=== PATIENT | female | born 1990 | race Caucasian/White ===

== ENCOUNTER → 2017-08-22 15:27 | Outpatient (CLI) | payer SELFPAY ==
--- NOTE | 2017-08-22 15:44 | MRI_ITS ---
STUDY: MRI BRAIN WITHOUT CONTRAST REASON FOR EXAM: Female, 27 years old. TAMAYO migraines with aura, numbness,slurred speech TECHNIQUE: Standardized multiplanar fat and water weighted pulse sequences were obtained. COMPARISON: None. FINDINGS: Normal size of the ventricles and extra-axial spaces for the patient's age. Normal white matter tracts of the supratentorial brain. Normal bilateral basal ganglia. Normal thalami. There is no extra-axial fluid accumulation. Normal flow voids within the major intracranial circulation suggesting patency by spin echo criteria. Normal sella turcica, pituitary gland, infundibular stalk, optic chiasm and hypothalamus. Normal tectal plate and pineal gland. Normal midbrain, lonnie and medulla. Normal cerebellum. Normal basal cisterns. Normal bilateral temporal bones. Normal bilateral internal auditory canals. No demonstrated orbital abnormality, within the constraints of a routine brain study. Normal visualized paranasal sinuses. Normal calvarium and skull base. Normal visualized soft tissue structures. Normal visualized upper cervical spine. MRI/Brain without Contrast IMPRESSION: Normal unenhanced MRI of the brain. Electronically Signed: Jeremy Plata MD at 3:22 EDT Tel , Service support ,
== END ==
PROVIDERS: Family Provider Family Medicine; PCP Family Medicine; Visit Provider Psychiatry & Neurology Neurology
DX: R51 Headache (principal)
CPT/HCPCS: 70551

== ENCOUNTER → 2017-10-07 17:46 | Outpatient (CLI) | payer SELFPAY ==
[2017-10-07 20:37] LABS: Chlamydia Trachomatis by PCR Negative (Negative); Neisserai gonorrhoeae by PCR Negative (Negative); Probe Check PASS; Sample Adequacy Control PASS; Specimen Processing Control PASS
== END ==
PROVIDERS: Family Provider Family Medicine; PCP Family Medicine; Visit Provider Obstetrics & Gynecology
DX: Z34.81 Encounter for supervision of other normal pregnancy, first trimester (principal)
CPT/HCPCS: 87086; 87491; 87591

== ENCOUNTER 2018-08-09 17:59 | Emergency (ER) | payer SELFPAY ==
[2018-08-09 18:00] VITALS: BP 145/98; PULSE 89; RESP 18; TEMP 36.3; O2SAT 96; BMI 25.0
--- NOTE | 2018-08-09 18:21 | CT_ITS ---
STUDY: CT ABDOMEN AND PELVIS WITHOUT CONTRAST REASON FOR EXAM: Female, 28 years old. Abdominal pain and cramping today RADIATION DOSAGE (If Supplied By Facility): CTDIvol = ( 6.47 ) mGy, DLP = ( 341.16 ) mGycm TECHNIQUE: Transaxial images were obtained from the dome of the diaphragm to the symphysis pubis without oral contrast, and without intravenous contrast. Sagittal and coronal images were reconstructed. Individualized dose optimization techniques were used for this CT. COMPARISON: None. FINDINGS: The visualized lung bases are unremarkable. The visualized portions of the heart are within normal limits. Normal liver. Normal gallbladder and extrahepatic biliary system. Normal spleen. Normal pancreas. Normal bilateral adrenal glands. Normal right kidney. Normal left kidney. Normal visualized stomach. Normal small intestine. Normal colon. The appendix is visualized and appears normal. Normal abdominal aorta. Normal inferior vena cava. Normal retroperitoneum. Normal urinary bladder. Normal abdominal wall. Normal osseous structures. CT/Abdomen/Pelvis without Cont IMPRESSION: No CT evidence of acute abdominopelvic pathology. No evidence of appendicitis, acute intestinal pathology, or acute obstructive uropathy. Electronically Signed: Stephen Arredondo MD at 20:40 EDT Tel , Service support ,
[2018-08-09] MEDS: 0.9% Normal Saline 1,000 ML 125 ML IV (18:26)
[2018-08-09 18:45] LABS: Bacteria 0 SEEN /hpf (None Seen); Mucous, Urine 0 SEEN /hpf (<or=2+); Red Blood Cells-Urine 0 SEEN /hpf (0-5)
[2018-08-09 19:04] LABS: Absolute Lymphocyte Count 2.59 X10^3/ul (0.83-4.51); Absolute Neutrophil Count 3.3 X10^3/uL (2.0-7.7); Basophil# 0.03 X10^3/uL; Basophil% 0.5 % (0-1); Hematocrit 41.5 % (37-47); Hemoglobin 14.1 g/dl (12.0-15.0); Lymphocyte # 2.59 X10^3/ul (4.0); Lymphocyte % 39.2 % (19-41); Mean Corpuscular Hgb 29.3 pg (27.0-32.0); Mean Corpuscular Volume 86.3 fL (81-99); Monocyte# 0.51 X10^3/uL; Monocyte% 7.7 % (0-10); Neutrophil # 3.26 X10^3/uL (2.7-7.7); Neutrophil % 49.4 % (47-70); Platelet Count 238 K/mm3 (150-450); RBC Distribution Width CV 14.4 % (11.6-14.6); Red Blood Count 4.81 M/mm3 (4.2-5.4); White Blood Count 6.6 K/mm3 (4.4-11.0)
[2018-08-09 19:07] LABS: POSITIVE COUNT NO; POSITIVE DIFFERENTIAL NO; POSITIVE MORPHOLOGY NO
[2018-08-09 19:11] LABS: Color, Urine Yellow (Yellow); Glucose, Dipstick Normal (Normal); Ketone-Dipstick 15 mg/dl (Negative); Leukocyte Esterase-Dipstick 25 /ul (Negative); Nitrite-Dipstick Negative (Negative); Occult Blood-Urine Negative /ul (Negative); Protein-Dipstick Negative (Negative); Specific Gravity, Urine 1.025 (1.002-1.030); Urine Bilirubin Dipstick Negative (Negative); Urine Clarity Sl. Cloudy (Clear); Urine Urobilinogen Normal (Normal)
[2018-08-09 19:21] LABS: ALB/GLOB Ratio 1.2 RATIO (0.9-2.4); AST(SGOT) 18 U/L (15-37); Alanine Aminotransfer ALT/SGPT 24 U/L (13-56); Albumin, Serum 4.3 g/dL (3.2-5.0); Alkaline Phosphatase 170 U/L (45-117); Anion Gap 9 (5-15); BUN 24 mg/dL (7-18); Calcium,Total 9.2 mg/dL (8.5-10.1); Chloride 106 mmol/L (98-107); Creatinine, Serum 1.26 mg/dL (0.55-1.02); EST Glomerular Filtration Rate 53 mL/min (>60); Est Glom Filt Rate - Afr Amer 64 mL/min (>60); Estimated Creatinine Clearance 61.12 ml/min; Globulin 3.5 g/dL (2.2-4.2); Glucose 80 mg/dL (74-106); Potassium 4.2 mmol/L (3.5-5.1); Protein, Total 7.8 g/dL (6.4-8.2); Sodium Level 141 mmol/L (136-145)
[2018-08-09 19:34] LABS: Hyaline Cast 0-5 SEEN /lpf (0-5); Squamous Epithelial Cells - UA 0-5 SEEN /hpf (5-10); White Blood Cells 0-5 SEEN /hpf (0-5)
[2018-08-09] MEDS: Ondansetron 4 MG/2 ML Vial IV (19:39)
[2018-08-09] MEDS: Morphine 4 MG/ML Syringe IV (19:39)
[2018-08-09 19:59] LABS: Pregnancy, Serum, hCG Quali. NEGATIVE Negative (0-9 Nonpreg)
--- NOTE | 2018-08-09 20:56 | US_ITS ---
STUDY: ULTRASOUND OF THE FEMALE PELVIS - COMPLETE REASON FOR EXAM: Female, 28 years old. Pelvic pain LMP: 07/04/2018 TECHNIQUE: Transvaginal TECHNICAL QUALITY: Adequate. COMPARISON: CT 08/09/2018 FINDINGS: The uterus is anteverted and is in a midline position. The uterus measures 6.3 x 4.4 x 2.9 cm. Normal uterine cervix. The endometrium measures 4 mm in thickness, and is hyperechoic. There is no demonstrated endometrial mass. There is no demonstrated myometrial mass. I.U.D. - The patient does not have an I.U.D. The right ovary is visualized. The right ovary measures 3.0 x 2.2 x 1.7 cm. There is no right ovarian cyst or ovarian mass. There is no visualized right adnexal mass or complex lesion. There is normal arterial and normal venous vascularity. The left ovary is visualized. The left ovary measures 2.1 x 1.9 x 1.9 cm. 1.3 x 1.1 x 1.0 cm cyst. There is no visualized left adnexal mass or complex lesion. There is normal arterial and normal venous vascularity. There is minimal fluid in the cul-de-sac. Polycystic ovary disease: No. US/Transvaginal Non- IMPRESSION: 1.3 cm left ovary cyst. Mild free pelvic fluid. Electronically Signed: Stephen Arredondo MD at 22:40 EDT Tel , Service support ,
[2018-08-09 21:09] VITALS: BP 114/79; PULSE 70; RESP 16; O2SAT 100
--- NOTE | 2018-08-09 21:14 | ED.VISSUMM ---
- ER Visit Summary Date of Service: 08/09/18 Chief Complaint: Abdominal pain [] History of Present Illness: The patient is a 28 F [presents the emergency department chief complaint of abdominal pain that started around 2 days ago initially. Patient had some mild intermittent discomfort to her left lower quadrant but the pain became more unbearable and severe about an hour prior to coming in and more in the suprapubic region. Patient denies any urinary symptoms. She denies any fever. She denies any vomiting. She has had some mild nausea. Patient denies any diarrhea. Patient did give about 11 weeks ago vaginally. Patient had some bleeding complications during .] Physical Examination: [HEENT-PERRLA, EOMI. Cranial nerves II through XII grossly intact. TMs clear. Mucous membranes moist. No adenopathy. Cardiovascular-regular rate and rhythm without murmur or ectopy Lungs-clear to auscultation, chest wall stable without crepitus or subcu emphysema Abdomen-normoactive bowel sounds, soft. Patient has some tenderness over suprapubic region with some guarding. She also has tenderness over right lower quadrant as well as the left lower quadrant. There is no rebound, rigidity, or perineal signs. Extremities-intact ?4, normal range of motion, normal pulses, atraumatic] Test Results: [CBC with differential obtained showed a white blood cell count of 6.6, hemoglobin 14, hematocrit 41.5, platelets 238. Chemistry showed a sodium 141, potassium 4.2, chloride 106, CO2 26, BUN 24, creatinine 1.26. Urinalysis was normal. HCG was negative. CT flank showed nothing acute. Pelvic ultrasound showed a 1.3 cm cyst on the left ovary otherwise nothing acute.] Emergency Department Course and Treatment: [She was medicated with morphine 4 mill grams IV as well as Zofran 4 mg IV. Patient continued complaint of pain. Pelvic ultrasound was obtained to rule out ovarian torsion.] Treatment Plan: [Patient will be given a prescription for [place]. Patient advised to follow-up with her COUNTY COMMISSIONER within the next 3-5 days. Patient advised to return if worsening pain, fever, vomiting, or condition should worsen anyway.] Disposition: [Discharged home in stable condition] Impression: [Abdominal pain-etiology uncertain Left ovarian cyst] This note was generated with [employer] software. It may contain incorrect words, spelling, and punctuation that were not noted in review of the chart prior to signing ED Disposition - Plan for ED Patient: Referrals: Shankar Ramos MD [Primary Care Provider] -
--- NOTE | 2018-08-09 22:52 | ED.DEP ---
ED Disposition - Plan for ED Patient: Instructions: ED Abdominal Pain Unkn Cause, ED Cyst Ovarian Referrals: Shankar Ramos MD [Primary Care Provider] -
[2018-08-09 23:01] VITALS: BP 110/76; PULSE 69; RESP 18; O2SAT 97
[2018-08-09] MEDS: HYDROcodone Bitartrate/Apap 5/325 Tablet PO (23:09)
== END 2018-08-09 23:10 | disposition home or self-care (01) ==
LOC: ED 18:35
PROVIDERS: Emergency Provider Emergency Medicine; Family Provider Family Medicine; PCP Family Medicine
DX: R10.31 Right lower quadrant pain (principal); R10.32 Left lower quadrant pain; N83.202 Unspecified ovarian cyst, left side; R11.0 Nausea
CPT/HCPCS: 74176; 76830; 80053; 81001; 84703; 85025; 93976; 96361; 96374; 96375; 99283; J2405

== ENCOUNTER 2018-08-12 10:47 | Emergency (ER) | payer SELFPAY ==
[2018-08-12 10:49] VITALS: BP 150/92; PULSE 65; RESP 16; TEMP 36.4; O2SAT 98; BMI 24.8
--- NOTE | 2018-08-12 11:05 | EKG12_ITS ---
Test Reason : Blood Pressure : / mmHG Vent. Rate : 061 BPM Atrial Rate : 061 BPM P-R Int : 118 ms QRS Dur : 094 ms QT Int : 404 ms P-R-T Axes : 044 030 006 degrees QTc Int : 406 ms Normal sinus rhythm Nonspecific T wave abnormality Abnormal ECG Confirmed by TITA BRUNO, YARELY ([id number]), managing editor EDDIE BRAVO ([id number]) on 08/14/2018 11:06:06 AM Referred By: ANNALISE Confirmed By:YARELY RIVERS MD
--- NOTE | 2018-08-12 11:12 | CT_ITS ---
STUDY: CT ABDOMEN AND PELVIS WITH CONTRAST REASON FOR EXAM: Female, 28 years old. Lower abdominal pain with loose stools RADIATION DOSAGE (If Supplied By Facility): CTDIvol = ( 12.68 ) mGy, DLP = ( 611.19 ) mGycm TECHNIQUE: Transaxial images were obtained from the dome of the diaphragm to the symphysis pubis with oral contrast. 100mL IV/Oral Isovue 300 was administered. Sagittal and coronal images were reconstructed. Individualized dose optimization techniques were used for this CT. COMPARISON: None. FINDINGS: The visualized lung bases are unremarkable. The visualized portions of the heart are within normal limits. Focal fatty infiltration adjacent to falciform ligament demonstrated. Normal gallbladder and extrahepatic biliary system. Normal spleen. Normal pancreas. Normal bilateral adrenal glands. Normal right kidney. Normal left kidney. Normal visualized stomach. Normal small intestine. Although not well distended, there appears to be mild wall thickening of the rectosigmoid colon with fluid identified within the rectal vault. Trace amount of free fluid in the dependent portion of pelvis is new since the prior study. Mild pericolonic stranding extends to the distal, descending colon. The appendix is visualized and appears normal. Normal abdominal aorta. Normal inferior vena cava. Normal retroperitoneum. Normal urinary bladder. There is a small umbilical hernia containing fat. Normal osseous structures. CT/Abdomen/Pelvis WITH Contrast IMPRESSION: 1. Mild rectosigmoid colon wall thickening with rectal vault fluid suggesting colitis, most typically infectious, new. 2. Trace amount of free fluid in the dependent portion of pelvis, new. Electronically Signed: Joseph French MD at 13:44 EDT , Service support ,
--- NOTE | 2018-08-12 11:14 | ED.VISSUMM ---
- ER Visit Summary Date of Service: 08/12/18 Chief Complaint: [] Lower abdominal pain worse with bowel movements History of Present Illness: The patient is a 28 F [] patient's been having pain for a number of days, she was seen on the third ED for this complaint she had extensive workup including labs CT pelvic ultrasound that generally are unremarkable showing a left ovarian cyst, she initially she started on Chinle, she follow-up with her medical assistant secretary, they had nothing further to offer, she indicates she is continued to have the discomfort the Chinle is helping her pain, but each time she has a bowel movement she has intensification of what she describes a sharp stabbing pain that slowly resolved, she is intermittently noticed blood in her stool, she has no history of any GI elements, no history of Crohn's disease or inflammatory bowel disease bowel obstruction no abdominal surgeries denies being , she actually has history of constipation She was able to eat today louis and other food without difficulty and she points again to the low pelvic area bilaterally as focus of her pain Physical Examination: [] Afebrile vital signs are within normal range General, no distress resting comfortably HEENT is generally unremarkable The neck is supple no adenopathy Cardiovascular, regular rate and rhythm Lungs, clear bilateral Abdomen, soft nontender she points to the left suprapubic and right lower pelvic area there is no rebound guarding or mild to this area abdomen is soft and nontender, rectal exam was done that shows no masses no pain no fecal impaction brown stool Extremities, no clubbing cyanosis or edema Neurologic, awake alert answering questions appropriately moving all 4 extremities Test Results: [] Emergency Department Course and Treatment: [] The patient screening labs are unremarkable generally see those reports, her CT abdomen contrast IV oral, showed what appears to be inflammation around the distal part of her rectum consistent with colitis this is a new finding compared to the study from the other day Patient is resting comfortably in the ED she is up walking around in no distress discussed the findings with her she really has no history of the above or risk factors that she can recall again she has no history of inflammatory bowel disease At this time she will be started on Cipro and Flagyl bland diet she will be referred to follow-up with Dr. Lea on-call for surgery and she will return for change in symptoms she is comp with this plan and agrees Treatment Plan: [] Please note stool was ordered for enteric pathogens and C. difficile but she has had no diarrhea Disposition: [] Home stable Impression: [] Pelvic pain, signs of rectal colitis on CT scan This note was generated with [employer] acquired [employer] dictation software. It may contain incorrect words, spelling, and punctuation that were not noted in review of the chart prior to signing ED Disposition - Plan for ED Patient: Instructions: ED Abdominal Pain Unkn Cause Prescriptions: Metronidazole [Flagyl] 500 mg PO Q8H #21 tab Ciprofloxacin [Cipro] 500 mg PO BID #14 tab Referrals: Shankar Ramos MD [Primary Care Provider] - Jaspal Pritchard MD [STAFF PHYSICIAN] -
[2018-08-12] MEDS: Ondansetron 4 MG/2 ML Vial IV (11:24)
[2018-08-12] MEDS: 0.9% Normal Saline 1,000 ML 125 ML IV (11:24)
[2018-08-12 11:36] LABS: Absolute Lymphocyte Count 1.61 X10^3/ul (0.83-4.51); Absolute Neutrophil Count 3.3 X10^3/uL (2.0-7.7); Basophil# 0.04 X10^3/uL; Basophil% 0.7 % (0-1); Eosinophil# 0.13 X10^3/uL; Eosinophils% 2.4 % (0-5); Lymphocyte # 1.61 X10^3/ul (4.0); Lymphocyte % 29.7 % (19-41); Mean Corp Hgb Conc 34.1 g/gl (32-36); Mean Corpuscular Hgb 28.9 pg (27.0-32.0); Mean Corpuscular Volume 84.5 fL (81-99); Mean Platelet Vol. 8.9 fl (6.2-12.0); Monocyte# 0.39 X10^3/uL; Monocyte% 7.2 % (0-10); Neutrophil # 3.25 X10^3/uL (2.7-7.7); Neutrophil % 59.8 % (47-70); Platelet Count 256 K/mm3 (150-450); RBC Distribution Width CV 14.5 % (11.6-14.6); RBC Distribution Width SD 44.1 fl (35.1-43.9); Red Blood Count 4.85 M/mm3 (4.2-5.4); White Blood Count 5.4 K/mm3 (4.4-11.0)
[2018-08-12 11:39] LABS: POSITIVE COUNT NO; POSITIVE DIFFERENTIAL NO; POSITIVE MORPHOLOGY NO
[2018-08-12 11:59] LABS: AST(SGOT) 15 U/L (15-37); Alanine Aminotransfer ALT/SGPT 22 U/L (13-56); Alkaline Phosphatase 170 U/L (45-117); Anion Gap 4 (5-15); BUN 11 mg/dL (7-18); BUN/Creat Ratio 8.5 RATIO (10-20); Bilirubin, Direct 0.09 mg/dL (0.00-0.30); Calcium,Total 9.3 mg/dL (8.5-10.1); Chloride 109 mmol/L (98-107); EST Glomerular Filtration Rate 51 mL/min (>60); Est Glom Filt Rate - Afr Amer 62 mL/min (>60); Estimated Creatinine Clearance 59.24 ml/min; Globulin 3.5 g/dL (2.2-4.2); Glucose 83 mg/dL (74-106); Lipase 131 U/L (73-393); Potassium 3.5 mmol/L (3.5-5.1); Protein, Total 7.5 g/dL (6.4-8.2); Sodium Level 141 mmol/L (136-145)
[2018-08-12 12:09] LABS: Pregnancy, Serum, hCG Quali. NEGATIVE Negative (0-9 Nonpreg)
[2018-08-12 12:57] LABS: Bacteria 0 SEEN /hpf (None Seen); Mucous, Urine 0 SEEN /hpf (<or=2+); Red Blood Cells-Urine 0 SEEN /hpf (0-5); White Blood Cells 0 SEEN /hpf (0-5)
[2018-08-12 13:05] LABS: Color, Urine Yellow (Yellow); Glucose, Dipstick Normal (Normal); Ketone-Dipstick Negative (Negative); Leukocyte Esterase-Dipstick 25 /ul (Negative); Nitrite-Dipstick Negative (Negative); Occult Blood-Urine Negative /ul (Negative); Protein-Dipstick Negative (Negative); Urine Bilirubin Dipstick Negative (Negative); Urine Clarity Clear (Clear); Urine Urobilinogen Normal (Normal); Urine pH 6.5 (5.0 - 8.0)
[2018-08-12 13:13] LABS: Squamous Epithelial Cells - UA 0-5 SEEN /hpf (5-10)
--- NOTE | 2018-08-12 14:00 | ED.DEP ---
ED Disposition - Plan for ED Patient: Instructions: ED Abdominal Pain Unkn Cause Prescriptions: Metronidazole [Flagyl] 500 mg PO Q8H #21 tab Ciprofloxacin [Cipro] 500 mg PO BID #14 tab Referrals: Shankar Ramos MD [Primary Care Provider] - Jaspal Pritchard MD [STAFF PHYSICIAN] -
[2018-08-12] MEDS: Ciprofloxacin 500 MG Tablet PO (14:27)
[2018-08-12] MEDS: metroNIDAZOLE 500 MG Tablet PO (14:28)
[2018-08-12 14:45] VITALS: RESP 16
== END 2018-08-12 14:45 | disposition home or self-care (01) ==
LOC: ED 11:41
PROVIDERS: Emergency Provider Emergency Medicine; Family Provider Family Medicine; PCP Family Medicine
DX: R10.2 Pelvic and perineal pain (principal); K52.89 Other specified noninfective gastroenteritis and colitis
CPT/HCPCS: 74177; 80048; 80076; 81001; 83690; 84484; 84703; 85025; 93005; 96361; 96374; 99284; J7030; J7040; Q9967; A4216; J2405

== ENCOUNTER 2019-07-09 15:30 | Outpatient (RCR) | payer SELFPAY ==
--- NOTE | 2019-06-13 19:09 | HP.PTEVAL_ITS ---
Patient's Visit Information STEWART GAUTAM is a 29 year old F referred to Physical Therapy by ERLIN Faith with a diagnosis of cervical radiculopathy, spondylosis, whiplash. Date of Evaluation: 06/13/19 Physical Therapist: NEETA Yates - Visit Plan Frequency: 2x /Week Duration: 6 Weeks Plan: 2X/ week for 6 weeks for centralization of symptoms with repeated motion, MT to the c-spine and surrounding musculature, postural exercises, trial of Dry needling, - Subjective Findings: Pt was dx with bulging disc [address] Shoemaker. 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 C6-C7 was the are of bulging discs. Pt has had bulging discs in her neck that are causing more issues.... Pt reports that her pain is getting worse and worse. Pt reports that she went to pick her Dr up and she got intense shoulder blade pain. She has had 2 injections and it has really helped and for 2 weeks she had no pain but then after that she is back to being in pain again. She has 2 little girls and is always picking them up. She has no weakness in her arms. She has a lot of tingling across her shoulder blades. She was told that there was weakness in her hands. She is R handed. SHe is a stay at home mom. Coughing and breathing increases her pain. She was prescribed muscle relaxors. She has never had the pain as she has it right now. She has scheduled a nerve burn.... - Pain C-spine pain Pain Intensity (Out of 10): 5 shoulder blade pain Pain Intensity (Out of 10): 8 - Objective c-spine AROM: Flexion 50%, Rotation to the L 50% and rotation to the R 75%, SB L 50%, SB R 75%, Extension 50%. UE AROM: Full AROM B shoulder. Psychiatric Orderly strength R 90# L 85#. Bicep DTR R 1+ L 2+. posture: Sits with upright posture: Chin tucks in sitting 3 X 10.... increase flexion of the c-spine but decrease extension. Chin tuck with extension .... increase pain and decreased movement into extension. Supine lying with towel under the head: ( pt reports that lying always hurts). Supine lying with NO towel under the head: feels better without the towel. Supine lying with chin tuck 3 X 10.... pt felt a little looser after supine chin tucks.... Thoracic extension painful at end range, decreased rotation B. Palpation: tender along mid trap, scapular tenderness, levator, thoracic spine - Goals Goal 1:: I HEP Goal Time Frame: 4-6 Weeks Goal 2:: Increase c-spine AROM by 25% each direction ( at time of eval: c-spine AROM: Flexion 50%, Rotation to the L 50% and rotation to the R 75%, SB L 50%, SB R 75%, Extension 50%) Goal Time Frame: 4-6 Weeks Goal 4:: Decrease pain in c-spine by 50% Goal Time Frame: 4-6 Weeks - Rehabilitation Potential Rehabilitation Potential: Good - Anticipated Interventions Patient/Client Instruction: Educate patient on: Condition, Plan of Care For the Purpose of:: To decrease pain, To decrease swelling/inflammation, To increase ROM, To improve nutrient delivery to tissue, To improve muscle performance and motor function, To increase tolerance to activity/condition/position, To improve health of tissue, To decrease soft tissue restriction Therapeutic Exercise to Include: Strength training, Postural training, Flexibilty training, Neuromotor development, Passive ROM, Active ROM, Nathan Exercises, Scapular Strength/Stabilization For the Purpose of:: To decrease pain, To increase ROM, To improve nutrient delivery to tissue, To increase oxygenation perfusion, To improve muscle performance and motor function, To improve ability to perform ADL's, To increase tolerance to activity/condition/position, To improve performance and independence with ADL's, To improve health of tissue, To decrease soft tissue restriction, To increase flexibility/ROM Manual Therapy Techniques to Include: Mobilization, Manipulation, Functional dry needling, Soft tissue mobilization For the Purpose of:: To decrease pain, To increase ROM, To improve nutrient delivery to tissue, To improve muscle performance and motor function, To increase tolerance to activity/condition/position, To improve health of tissue, To decrease soft tissue restriction, To increase flexibility/ROM IF ES: Yes Thermo therapy (hot pack): Yes Ultrasound (thermal/non thermal): Yes For the Purpose of:: To decrease pain, To decrease swelling/inflammation, To increase ROM, To improve nutrient delivery to tissue Thank you for the opportunity to evaluate your patient. For Medicare and Medicare HMO plans, please review the plan of care and approve it. It will need to be FAXED BACK to us at [phone] for Medicare purposes. For Medicare only, by signing this I certify the plan of care. Please let me know if there are questions or concerns regarding this plan of care. Physician Signature: Date:
--- NOTE | 2019-10-11 13:20 | HP.PTDCNRP_ITS ---
STEWART GAUTAM was seen in my office for initial evaluation on 06/13/19. The following Plan of Care was established for this patient: Initial Frequency: 2x /Week Initial Duration: 6 Weeks Patient/Client Instruction: Educate patient on: Condition, Plan of Care For the Purpose of:: To decrease pain, To decrease swelling/inflammation, To increase ROM, To improve nutrient delivery to tissue, To improve muscle performance and motor function, To increase tolerance to activity/condit ion/position, To improve health of tissue, To decrease soft tissue restriction Therapeutic Exercise to Include: Strength training, Postural training, Flexibilty training, Neuromotor development, Passive ROM, Active ROM, Nathan Exercises, Scapular Strength/Stabilization For the Purpose of:: To decrease pain, To increase ROM, To improve nutrient de livery to tissue, To increase oxygenation perfusion, To improve muscle performance and motor function, To improve ability to perform ADL's, To increase tolerance to activity/condition/position, To improve performance and independence with ADL's, To improve health of tissue, To decrease soft tissue restriction, To increase flexibility/ROM Manual Therapy Techniques to Include: Mobilization, Manipulation, Functional dry needling, Soft tissue mobilization For the Purpose of:: To decrease pain, To increase ROM, To improve nutrient delivery to tissue, To improve muscle performance and motor function, To increase tolerance to activity/condition/position, To improve health of tissue, To decrease soft tissue restriction, To increase flexibility/ROM IF ES: Yes Thermo therapy (hot pack): Yes Ultrasound (thermal/non thermal): Yes For the Purpose of:: To decrease pain, To decrease swelling/inflammation, To increase ROM, To improve nutrient delivery to tissue This patient was last seen in our office 07/09/19. Pertinent comments regarding their Physical therapy will appear below: CHRISTIE PT at this time. At this point I will be discontinuing this patient from physical therapy. I would be happy to see this patient again in the future if found appropriate by the physician. Thank you! Clarisa Levin, MPT
== END 2019-07-09 19:00 | disposition home or self-care (01) ==
LOC: PT 15:30
PROVIDERS: PCP Family Medicine; Referring Provider Nurse Practitioner Family; Visit Provider Nurse Practitioner Family
DX: M47.22 Other spondylosis with radiculopathy, cervical region (principal); S13.4XXD Sprain of ligaments of cervical spine, subsequent encounter
CPT/HCPCS: 97014; 97110; 97140; 97162; G0283

== ENCOUNTER 2020-04-06 15:44 | Emergency (ER) | payer SELFPAY ==
[2020-04-06 15:44] VITALS: BP 161/91; PULSE 97; RESP 18; TEMP 36.3; O2SAT 100; BMI 24.9
--- NOTE | 2020-04-06 16:00 | CT_ITS ---
STUDY: CT ABDOMEN AND PELVIS WITH CONTRAST REASON FOR EXAM: Female, 30 years old. Right lower quadrant pain for a few days RADIATION DOSAGE (If Supplied By Facility): CTDIvol = ( 15.05 ) mGy, DLP = ( 692.99 ) mGycm TECHNIQUE: CT images were obtained from the dome of the diaphragm to the symphysis pubis without oral contrast. Oral and amp; IV Gastrografin and amp; 100mL Isovue-300 was administered. Sagittal and coronal images were reconstructed. Individualized dose optimization techniques were used for this CT. COMPARISON: 12 August 2018 FINDINGS: The visualized lung bases are unremarkable. The visualized portions of the heart are within normal limits. Normal liver. Normal gallbladder and extrahepatic biliary system. Normal spleen. Normal pancreas. Normal bilateral adrenal glands. Normal right kidney. Normal left kidney. Normal visualized stomach. Normal small intestine. Normal colon. The appendix is visualized and appears normal. Normal abdominal aorta. Normal inferior vena cava. Normal retroperitoneum. Normal urinary bladder. There is an elongated 3 cm right adnexal cystic structure, possibly unruptured follicle/cyst. There is a small amount of free fluid in the pelvis Normal abdominal wall. Normal osseous structures. CT/Abdomen/Pelvis WITH Contrast IMPRESSION: 1. Presumed right ovarian cystic structure, refer to pelvic ultrasonography for confirmation. Electronically Signed: Kaleb Slade, at 18:28 EST Tel , Service support ,
--- NOTE | 2020-04-06 16:02 | ED.VISSUMM ---
- ER Visit Summary Date of Service: 04/06/20 Chief Complaint: Abdominal pain History of Present Illness: The patient is a 30 [address] who had seen Dr[address] Shankar Ramos prior to his mcc. She has not established a new primary care physician. She also sees Dr. Pinto. She reports that she has had right-sided flank pain for a few days. That seemed to resolve. She now has right lower quadrant abdominal pain. States that that had come on suddenly. Said cramping pain is 10 of 10 at worst 9-10 currently. Is worsened by movement and walking. Is relieved by remaining still. Said nausea without vomiting. Her last bowel was today. No diarrhea. No melena or hematochezia. No dysuria or frequency. No hematuria. Last menstrual period was 17 days ago. She denies any vaginal bleeding or discharge. States that this is somewhat similar to an ovarian cyst that she is not had in the past. It does not feel similar to kidney stones. Physical Examination: Vitals: Stable. Afebrile. General: Well-nourished and well-developed. Head: Normocephalic atraumatic. Neck: Supple, no lymphadenopathy. No JVD. Nontender. Cardiovascular: Regular rate and rhythm. No murmurs. Respiratory: No respiratory distress. Clear to auscultation bilaterally. Abdominal: Soft, mild suprapubic and moderate right lower quadrant tenderness to palpation, nondistended, normal bowel sounds. No guarding, rebound, or peritoneal signs. Back: Nontender. Extremities: Nontender, no edema. Skin: Normal color, no rash. Neurologic: Alert and oriented ?3. Cranial nerves II through XII are intact. Normal strength and sensation. Psych: Normal affect. Test Results: CBC shows a hemoglobin of 15.7. Chem-7 shows a chloride of 108. UA is negative. test is negative. Clinical Impression(s) from Imaging Studies Abdomen/Pelvis CT 04/06/20 16:00 IMPRESSION: 1. Presumed right ovarian cystic structure, refer to pelvic ultrasonography for confirmation. Electronically Signed: Kaleb Slade, at 18:28 EST Tel , Service support , Emergency Department Course and Treatment: Patient had an IV placed. She was given a liter normal saline. She was given morphine and Zofran IV. She is resting more comfortably. Treatment Plan: With a 3 cm cyst I do not think that the patient needs an ultrasound to rule out a torsion today. She refused pain medications for home. She is instructed to follow-up with her annealer helper as soon as possible. Return to the emergency department for any worsening symptoms. Disposition: To home in improved and stable condition. Impression: 1. Right ovarian cyst. This note was generated with [employer] dictation software. It may contain incorrect words, spelling, and punctuation that were not noted in review of the chart prior to signing ED Disposition - Plan for ED Patient: Disposition: Home or Assisted Living Instructions: ED Cyst Ovarian Referrals: Vish Gage DO [STAFF PHYSICIAN] - 1-2 Days if not improving
[2020-04-06 16:06] LABS: Mucous, Urine 0 SEEN /hpf (<or=2+); Red Blood Cells-Urine 0 SEEN /hpf (0-5)
[2020-04-06 16:08] LABS: Glucose, Dipstick Normal (Normal); Ketone-Dipstick Negative (Negative); Leukocyte Esterase-Dipstick 100 /ul (Negative); Nitrite-Dipstick Negative (Negative); Occult Blood-Urine Negative /ul (Negative); Protein-Dipstick Negative (Negative); Urine Bilirubin Dipstick Negative (Negative); Urine Clarity Sl. Cloudy (Clear); Urine Urobilinogen Normal (Normal)
[2020-04-06] MEDS: 0.9% Normal Saline 1,000 ML 1000 ML IV (16:12)
[2020-04-06] MEDS: Ondansetron 4 MG/2 ML Vial IV (16:12)
[2020-04-06 16:32] LABS: Color, Urine SEE COMMENT BELOW (Yellow)
[2020-04-06 16:35] LABS: Squamous Epithelial Cells - UA 0-5 SEEN /hpf (5-10)
[2020-04-06 16:35] LABS: Absolute Lymphocyte Count 2.67 X10^3/uL (0.83-4.51); Absolute Neutrophil Count 4.1 X10^3/uL (2.0-7.7); Basophil# 0.05 X10^3/uL; Basophil% 0.7 % (0-1); Eosinophil# 0.15 X10^3/uL; Hematocrit 43.6 % (37-47); Hemoglobin 15.7 g/dL (12.0-15.0); Lymphocyte # 2.67 X10^3/ul (4.0); Lymphocyte % 35.6 % (19-41); Mean Corpuscular Hgb 33.3 pg (27.0-32.0); Mean Corpuscular Volume 92.4 fL (81-99); Mean Platelet Vol. 8.8 fl (6.2-12.0); Monocyte# 0.54 X10^3/uL; Monocyte% 7.2 % (0-10); NRBC Flagged by Analyzer 0 % (0-5); Neutrophil # 4.07 X10^3/uL (2.7-7.7); Neutrophil % 54.1 % (47-70); Platelet Count 262 K/mm3 (150-450); RBC Distribution Width CV 11.9 % (11.6-14.6); RBC Distribution Width SD 40.2 fl (35.1-43.9); Red Blood Count 4.72 M/mm3 (4.2-5.4); White Blood Count 7.5 K/mm3 (4.4-11.0)
[2020-04-06 16:36] LABS: White Blood Cells 0-5 SEEN /hpf (0-5)
[2020-04-06 16:37] LABS: Bacteria RARE /hpf (None Seen)
[2020-04-06 16:45] LABS: Anion Gap 6 (5-15); BUN 15 mg/dL (7-18); Calcium,Total 9.1 mg/dL (8.5-10.1); Chloride 108 mmol/L (98-107); Creatinine, Serum 0.88 mg/dL (0.55-1.02); EST Glomerular Filtration Rate 79 mL/min (>60); Est Glom Filt Rate - Afr Amer 96 mL/min (>60); Estimated Creatinine Clearance 85.92 ml/min; Glucose 97 mg/dL (74-106); Potassium 3.7 mmol/L (3.5-5.1); Sodium Level 141 mmol/L (136-145)
[2020-04-06 17:43] LABS: Internal QC Validated? YES +Cl - CLEAR BKGD; Pregnancy, Serum, hCG Quali. NEGATIVE Negative
== END 2020-04-06 18:45 | disposition home or self-care (01) ==
LOC: ED 16:22
PROVIDERS: Emergency Provider Emergency Medicine; PCP Family Medicine
DX: N83.201 Unspecified ovarian cyst, right side (principal); Z87.442 Personal history of urinary calculi
CPT/HCPCS: 74177; 80048; 81001; 84703; 85025; 96361; 96374; 99282; J7030; Q9967; A4216; J2405

== ENCOUNTER → 2020-09-20 09:18 | Outpatient (CLI) | payer SELFPAY ==
[2020-09-20 10:36] LABS: hCG Titer Quant., Serum 60 mIU/mL (1-3)
== END ==
PROVIDERS: PCP Family Medicine; Referring Provider Specialist; Visit Provider Specialist
DX: O09.10 Supervision of pregnancy with history of ectopic pregnancy, unspecified trimester (principal); Z3A.00 Weeks of gestation of pregnancy not specified
CPT/HCPCS: 36415; 84702

== ENCOUNTER 2020-10-10 12:08 | Emergency (ER) | payer SELFPAY ==
[2020-10-10 12:09] VITALS: BP 125/85; PULSE 86; RESP 15; TEMP 36.8; O2SAT 97; BMI 27.4
--- NOTE | 2020-10-10 12:25 | EDS_ITS ---
HPI HPI - GI History of Present Illness Chief Complaint: Abd Pain Informant: patient Abdominal Pain/Flank Pain Onset: Today Context: Sudden Onset Timing: Lasts (10 mintues) Quality: Cramping and Sharp Location: Epigastric Current Severity: Gone Maximum Severity: Severe Worsened by: Food Nausea/Vomiting/Emesis GI Symptom: Positive for Nausea Onset: Today Narrative Narrative: The patient is a 30-year-old female who is currently 6 weeks . The patient presents with rather sudden onset abdominal pain that occurred after eating. She states that she had [employer] pancakes and ham. She states a few minutes later, she had a sharp, stabbing pain in her midepigastric area. She states she felt nauseated and flushed. The pain lasted about 10 minutes but she states it did double her over. Since then, she is been pain- free but just is felt mildly nauseated. She does have history of prior ectopic, but states the pain was much lower. She states this has not been complicated. She is otherwise been in her normal state of health. [facility] Medical History Abnormal Pap smear of cervix Migraines Home Medications vit,[id number] 1 tab PO DAILY 01/10/17 [History Last Taken 01/10/17] famotidine 20 mg PO BID #28 tablet 10/10/20 [Rx Last Taken Unknown] Allergy/AdvReac Type Severity Reaction Status Date / Time No Known Allergies Allergy Verified 10/10/20 12:11 Family History Grandfather CVA (cerebral vascular accident) Grandmother CVA (cerebral vascular accident) Surgical History S/P LEEP (~2015) Social History Smoking Status: Never smoker alcohol intake: never substance use type: does not use caffeine: Yes what type of physical activity do you participate in: walking, aerobics and weight training frequency: 3-4 times per week seatbelt use: always do you feel safe at home: Yes additional social history: - [employer] (houses) Patient is stay at home mom ROS ROS ED Constitutional Constitutional ED: Denies chills or fever(s) Eyes Eyes: Denies blurry vision or change in vision ENT ENT ED: Denies ear pain or sore throat Cardiovascular Cardiovascular: Denies chest pain or palpitations Respiratory/Chest Respiratory/Chest: Denies cough, dyspnea or dyspnea on exertion Gastrointestinal Gastrointestinal: Reports abdominal pain and nausea; Denies vomiting Genitourinary Genitourinary ED: Denies dysuria or urinary frequency Musculoskeletal Musculoskeletal: Denies arthralgias or myalgias Integumentary Denies rash Neurologic Neurologic: Denies headache(s) or paresthesias Psychiatric Psychiatric: Denies anxiety or depression Endocrine Endocrinology: Denies polydipsia or polyuria Allergic/Immunologic Allergic/Immunologic ED: Denies urticaria EXAM Physical Exam Const Vital Signs: 10/10/20 12:09 Temperature 98.3 F Temperature Source Temporal Pulse Rate 86 Respiratory Rate 15 Blood Pressure 125/85 H Blood Pressure Mean 98 Pulse Ox 97 Oxygen Delivery Method Room Air Positive well nourished and well developed General Appearance ED: well developed HEENT Reports normocephalic, head/scalp atraumatic and moist mucous membranes Eyes PERRL and EOMs intact bilaterally Neck no lymphadenopathy and supple General: Negative for tenderness Chest Wall inspection of chest normal Resp normal respiratory effort and clear to auscultation bilaterally Cardio regular rate, regular rhythm and no murmurs GI normal to inspection, nondistended, normoactive bowel sounds and non-distended Auscultation: normoactive bowel sounds Palpation: soft and tender epigastric; Negative for guarding or rebound tenderness present Back/Spine no CVA tenderness Cervical Spine: Negative for cervical spine tenderness Thoracic Spine / Upper Back: Negative for thoracic spinal tenderness Extremity normal to inspection General Extremety ED: Negative for tenderness Neuro oriented x3 and CN's II-XII intact bilaterally Neuro Narrative: No focal deficits appreciated. Sensorium / Orientation: alert Psych mental status grossly normal Skin no rashes or lesions noted, no wounds and skin turgor normal MDM MDM MDM Narrative Medical decision making narrative: Patient presents with midepigastric abdominal pain that is since resolved. She is very minimal tenderness. Her nausea is resolved. IV was established. Patient was given fluids. I did obtain screening labs. Liver functions were unremarkable. Lipase was unremarkable. Her quant is increasing. She does have history of ectopic and we discussed ultrasound, but the patient did state that she had ultrasound done 2 days ago. I do not feel that this needed to be repeated so it was canceled. This time, the patient has a repeat soft nontender abdomen. My suspicion is this is likely gastritis. I will prescribe her Pepcid but she is unsure if she is going to start to take it when she has more symptoms. I am comfortable with this. She will be discharged home. Impression 1. Gastritis Lab Data Attestation: I reviewed the patient's lab results. Labs: Laboratory Results - last 24 hr 10/10/20 10/10/20 10/10/20 12:33 12:33 12:33 WBC 9.4 RBC 4.50 Hgb 15.0 Hct 40.8 MCV 90.7 MCH 33.3 H MCHC 36.8 H RDW Std Deviation 38.9 RDW Coeff of Carlos Alberto 11.8 Plt Count 219 MPV 8.4 Immature Gran % (Auto) 0.700 Neut % (Auto) 75.3 H Lymph % (Auto) 14.9 L [place] % (Auto) 7.8 Eos % (Auto) 1.1 Baso % (Auto) 0.2 Absolute Neuts (auto) 7.1 Absolute Lymphs (auto) 1.40 Nucleated RBC % 0 Sodium 136 Potassium 3.8 Chloride 106 Carbon Dioxide 27.0 Anion Gap 3 L BUN 15 Creatinine 0.84 Estim Creat Clear Calc 86.52 Est GFR (MDRD) Af Amer 100 Est GFR (MDRD) Non-Af 83 BUN/Creatinine Ratio 17.8 Glucose 87 Calcium 9.0 Total Bilirubin 1.10 H AST 12 L ALT 22 Alkaline Phosphatase 103 Total Protein 7.3 Albumin 3.8 Globulin 3.5 Albumin/Globulin Ratio 1.1 Lipase 114 HCG, Quant 10/10/20 12:34 WBC RBC Hgb Hct MCV MCH MCHC RDW Std Deviation RDW Coeff of Carlos Alberto Plt Count MPV Immature Gran % (Auto) Neut % (Auto) Lymph % (Auto) [place] % (Auto) Eos % (Auto) Baso % (Auto) Absolute Neuts (auto) Absolute Lymphs (auto) Nucleated RBC % Sodium Potassium Chloride Carbon Dioxide Anion Gap BUN Creatinine Estim Creat Clear Calc Est GFR (MDRD) Af Amer Est GFR (MDRD) Non-Af BUN/Creatinine Ratio Glucose Calcium Total Bilirubin AST ALT Alkaline Phosphatase Total Protein Albumin Globulin Albumin/Globulin Ratio Lipase HCG, Quant 60069 H Discharge Plan Triage Chief Complaint: Abd Pain ED Provider: Cleveland Palacios Dx/Rx/DC Orders Instructions: ED Gastritis (Adult) Prescriptions: New famotidine [famotidine] 20 MG tablet 20 mg PO BID Qty: 28 RF: 0 No Action vit,[id number] 1 TABLET tablet 1 tab PO DAILY RF: 0 Primary Care Provider: Shankar Orona Referrals: Shankar Orona MD [Primary Care Provider] -
[2020-10-10 12:39] LABS: Absolute Neutrophil Count 7.1 X10^3/uL (2.0-7.7); Basophil# 0.02 X10^3/uL; Basophil% 0.2 % (0-1); Eosinophils% 1.1 % (0-5); Hematocrit 40.8 % (37-47); Lymphocyte % 14.9 % (19-41); Mean Corp Hgb Conc 36.8 g/dL (32-36); Mean Corpuscular Hgb 33.3 pg (27.0-32.0); Mean Corpuscular Volume 90.7 fL (81-99); Mean Platelet Vol. 8.4 fl (6.2-12.0); Monocyte# 0.73 X10^3/uL; Monocyte% 7.8 % (0-10); NRBC Flagged by Analyzer 0 % (0-5); Neutrophil # 7.05 X10^3/uL (2.7-7.7); Neutrophil % 75.3 % (47-70); Platelet Count 219 K/mm3 (150-450); RBC Distribution Width CV 11.8 % (11.6-14.6); RBC Distribution Width SD 38.9 fl (35.1-43.9); White Blood Count 9.4 K/mm3 (4.4-11.0)
[2020-10-10 12:55] LABS: ALB/GLOB Ratio 1.1 RATIO (0.9-2.4); AST(SGOT) 12 U/L (15-37); Alanine Aminotransfer ALT/SGPT 22 U/L (13-56); Albumin, Serum 3.8 g/dL (3.2-5.0); Alkaline Phosphatase 103 U/L (45-117); Anion Gap 3 (5-15); BUN 15 mg/dL (7-18); BUN/Creat Ratio 17.8 RATIO (10-20); Chloride 106 mmol/L (98-107); Creatinine, Serum 0.84 mg/dL (0.55-1.02); EST Glomerular Filtration Rate 83 mL/min (>60); Est Glom Filt Rate - Afr Amer 100 mL/min (>60); Estimated Creatinine Clearance 86.52 ml/min; Globulin 3.5 g/dL (2.2-4.2); Glucose 87 mg/dL (74-106); Potassium 3.8 mmol/L (3.5-5.1); Protein, Total 7.3 g/dL (6.4-8.2); Sodium Level 136 mmol/L (136-145)
[2020-10-10 13:45] LABS: Lipase 114 U/L (73-393)
[2020-10-10 14:14] VITALS: BP 132/78; PULSE 78; RESP 16; O2SAT 98
== END 2020-10-10 14:15 | disposition home or self-care (01) ==
LOC: ED 12:53
PROVIDERS: Emergency Provider Emergency Medicine; PCP Family Medicine
DX: O99.611 Diseases of the digestive system complicating pregnancy, first trimester (principal); K29.70 Gastritis, unspecified, without bleeding; Z3A.01 Less than 8 weeks gestation of pregnancy
CPT/HCPCS: 80053; 83690; 84702; 85025; 96360; 96361; 99285; J7040

== ENCOUNTER → 2021-02-26 | Outpatient (CLI) | payer MEDICARE, SELFPAY | END | disposition home or self-care (01) | PROVIDERS: PCP Family Medicine; Referring Provider Family Medicine; Visit Provider Family Medicine | DX: Z20.822 Contact with and (suspected) exposure to COVID-19 (principal) | CPT/HCPCS: 87635; U0005; U0003 ==

== ENCOUNTER → 2022-03-10 | Outpatient (CLI) | payer SELFPAY ==
[2022-03-10 18:00] LABS: Absolute Lymphocyte Count 2.26 X10^3/uL (0.83-4.51); Absolute Neutrophil Count 4.2 X10^3/uL (2.0-7.7); Basophil# 0.04 X10^3/uL; Basophil% 0.6 % (0-1); Eosinophil# 0.19 X10^3/uL; Eosinophils% 2.6 % (0-5); Hematocrit 44.1 % (37-47); Hemoglobin 15.7 g/dL (12.0-15.0); Lymphocyte # 2.26 X10^3/ul (0.83-4.51); Lymphocyte % 31.4 % (19-41); Mean Corp Hgb Conc 35.6 g/dL (32-36); Mean Corpuscular Hgb 33.5 pg (27.0-32.0); Mean Platelet Vol. 8.7 fl (6.2-12.0); Monocyte# 0.43 X10^3/uL; NRBC Flagged by Analyzer 0 % (0-5); Neutrophil # 4.23 X10^3/uL (2.7-7.7); Neutrophil % 58.8 % (47-70); Platelet Count 292 K/mm3 (150-450); RBC Distribution Width CV 11.9 % (11.6-14.6); RBC Distribution Width SD 40.6 fl (35.1-43.9); Red Blood Count 4.69 M/mm3 (4.2-5.4); White Blood Count 7.2 K/mm3 (4.4-11.0)
[2022-03-10 18:15] LABS: ALB/GLOB Ratio 1.1 RATIO (0.9-2.4); AST(SGOT) 16 U/L (15-37); Alanine Aminotransfer ALT/SGPT 25 U/L (13-56); Albumin, Serum 4.1 g/dL (3.2-5.0); Alkaline Phosphatase 160 U/L (45-117); Anion Gap 5 (5-15); BUN 12 mg/dL (7-18); BUN/Creat Ratio 13.4 RATIO (10-20); Calcium,Total 9.9 mg/dL (8.5-10.1); Chloride 106 mmol/L (98-107); EST Glomerular Filtration Rate 77 mL/min (>60); Est Glom Filt Rate - Afr Amer 93 mL/min (>60); Globulin 3.6 g/dL (2.2-4.2); Glucose 100 mg/dL (74-106); Potassium 3.9 mmol/L (3.5-5.1); Protein, Total 7.7 g/dL (6.4-8.2); Sodium Level 138 mmol/L (136-145)
== END | disposition home or self-care (01) ==
PROVIDERS: PCP Family Medicine; Referring Provider Family Medicine; Visit Provider Family Medicine
DX: R10.30 Lower abdominal pain, unspecified (principal)
CPT/HCPCS: 36415; 80053; 85025

== ENCOUNTER → 2022-03-12 | Outpatient (CLI) | payer SELFPAY ==
--- NOTE | 2022-03-12 06:29 | CT_ITS ---
INDICATION: Lower abdominal, periumbilical pain for months. Pain worsens with menstruation. Nausea. History of ectopic . EXAMINATION: CT ABDOMEN AND PELVIS WITH CONTRAST - CT Abdomen And Pelvis W/ Contrast Injection TECHNIQUE: Helically acquired images were obtained of the abdomen and pelvis following IV contrast. A radiation dose optimization technique was used for this scan. IV Contrast dosage and agent: 100 mL of Isovue-300 Oral contrast: With COMPARISON: April 06, 2020 FINDINGS: LOWER CHEST: Lung bases are clear. No cardiomegaly or pericardial effusion. LIVER: Homogeneous. No focal mass. GALLBLADDER AND BILIARY TREE: No calcified gallstones. No gallbladder distension or wall edema. No intra- or extrahepatic biliary ductal dilation. PANCREAS: No focal cystic or solid mass. SPLEEN: Normal size without focal cystic or solid mass. ADRENAL GLANDS: No nodules. KIDNEYS AND URETERS: Normal renal size and position. No hydronephrosis. Normal visualized ureters. PERITONEUM: No ascites or free air. No other fluid collection. BOWEL: Normal stomach. Normal small bowel. There is minimal wall thickening of the sigmoid colon without inflammatory change or diverticulitis. The possible area of mild colitis cannot be ruled out. Proximal colon is unremarkable. Normal appendix. LYMPH NODES: No enlarged mesenteric or retroperitoneal lymph nodes. VESSELS: Aorta is non-dilated. Normal IVC. URINARY BLADDER: Unremarkable. REPRODUCTIVE ORGANS: Normal uterus. There are follicles in the right ovary. No pelvic lymphadenopathy. ABDOMINAL WALL: Small umbilical hernia of omental fat. The gallbladder wall is otherwise unremarkable. BONES: No lytic or blastic abnormality. CT/Abdomen/Pelvis WITH Contrast IMPRESSION: 1. Question mild sigmoid colitis. 2. Otherwise normal CT of the abdomen and pelvis. Electronically Signed: Kenyon Moore DO at 17:11 EDT ,
== END | disposition home or self-care (01) ==
PROVIDERS: PCP Family Medicine; Referring Provider Family Medicine; Visit Provider Family Medicine
DX: R10.30 Lower abdominal pain, unspecified (principal)
CPT/HCPCS: 74177; Q9967

== ENCOUNTER 2022-03-30 09:13 | Outpatient (CLI) | payer SELFPAY ==
--- NOTE | 2022-03-30 09:18 | RAD_ITS ---
STUDY: X-RAY - PELVIS REASON FOR EXAM: Female, 32 years old. Pain. TECHNIQUE: One view of the pelvis was obtained. COMPARISON: None. FINDINGS: There is a non-specific bowel gas pattern. Phleboliths. Normal bilateral iliac wings, sacroiliac joints and visualized sacrum. Normal visualized bilateral superior and inferior pubic rami. Normal pubic symphysis. Normal ischial tuberosities. Normal visualized right femoral head. Normal right acetabulum. Normal right hip joint. Normal visualized left femoral head. Normal left acetabulum. Normal left hip joint. RAD/Pelvis 1 or 2 Views IMPRESSION: No abnormality of the visualized osseous structures. Electronically Signed: Ori Jordan, at 10:18 EST ,
[2022-03-30 12:18] LABS: Erythrocyte Sedimentation Rate 4 mm/hr (0-30)
[2022-03-30 12:23] LABS: Absolute Lymphocyte Count 1.94 X10^3/uL (0.83-4.51); Absolute Neutrophil Count 3.2 X10^3/uL (2.0-7.7); Basophil# 0.03 X10^3/uL; Basophil% 0.5 % (0-1); Eosinophil# 0.15 X10^3/uL; Eosinophils% 2.6 % (0-5); Hematocrit 43.6 % (37-47); Hemoglobin 15.3 g/dL (12.0-15.0); Lymphocyte # 1.94 X10^3/ul (0.83-4.51); Lymphocyte % 33.6 % (19-41); Mean Corp Hgb Conc 35.1 g/dL (32-36); Mean Corpuscular Hgb 32.1 pg (27.0-32.0); Mean Corpuscular Volume 91.6 fL (81-99); Monocyte# 0.38 X10^3/uL; Monocyte% 6.6 % (0-10); NRBC Flagged by Analyzer 0 % (0-5); Neutrophil # 3.24 X10^3/uL (2.7-7.7); Neutrophil % 56.2 % (47-70); Platelet Count 309 K/mm3 (150-450); RBC Distribution Width SD 40.1 fl (35.1-43.9); Red Blood Count 4.76 M/mm3 (4.2-5.4); White Blood Count 5.8 K/mm3 (4.4-11.0)
[2022-03-30 13:04] LABS: Hepatitis B Surface Antibody Reactive; Hepatitis B Surface Antigen Non-Reactive (Nonreactive); Hepatitis C Antibody Non-Reactive (Nonreactive)
[2022-03-30 13:05] LABS: ALB/GLOB Ratio 1.2 RATIO (0.9-2.4); AST(SGOT) 16 U/L (15-37); Alanine Aminotransfer ALT/SGPT 28 U/L (13-56); Albumin, Serum 4.3 g/dL (3.2-5.0); Alkaline Phosphatase 157 U/L (45-117); Anion Gap 5 (5-15); BUN 11 mg/dL (7-18); BUN/Creat Ratio 12.1 RATIO (10-20); CRP < 2.90 mg/L (0.0-3.0); Calcium,Total 9.3 mg/dL (8.5-10.1); Chloride 108 mmol/L (98-107); Creatinine, Serum 0.91 mg/dL (0.55-1.02); EST Glomerular Filtration Rate 75 mL/min (>60); Est Glom Filt Rate - Afr Amer 91 mL/min (>60); Globulin 3.6 g/dL (2.2-4.2); Glucose 84 mg/dL (74-106); Potassium 3.5 mmol/L (3.5-5.1); Protein, Total 7.9 g/dL (6.4-8.2); Rheumatoid Factor < 10.0 IU/mL (<15); Sodium Level 139 mmol/L (136-145)
[2022-03-31 14:49] LABS: ANTINUCLEAR ANTIBODIES DIRECT Negative (Negative)
[2022-04-09 18:07] LABS: QNTFERON TB Mitogen Value > 10.00 IU/mL (.); QNTFERON TB Nil Value 0.07 IU/mL (.); QNTFERON TB1+ Ag Value 0.05 IU/mL (.); QNTFERON TB2+ Ag Value 0.05 IU/mL (.)
[2022-04-09 18:37] LABS: CCP IgG Antibodies 9 units (0-19); HLA B27 Negative (.); QNTIFERON TB Positive Criteria Negative (Negative)
== END 2022-03-30 23:59 | disposition home or self-care (01) ==
PROVIDERS: PCP Family Medicine; Referring Provider Internal Medicine Rheumatology; Visit Provider Internal Medicine Rheumatology
DX: M06.4 Inflammatory polyarthropathy (principal); G43.909 Migraine, unspecified, not intractable, without status migrainosus
CPT/HCPCS: 72170; 80053; 81374; 85025; 85652; 86038; 86140; 86200; 86431; 86480; 86706; 86803; 87340

== ENCOUNTER → 2022-07-19 | Outpatient (CLI) | payer SELFPAY ==
[2022-07-19 15:20] LABS: Absolute Lymphocyte Count 2.24 X10^3/uL (0.83-4.51); Basophil# 0.04 X10^3/uL; Basophil% 0.7 % (0-1); Eosinophil# 0.13 X10^3/uL; Eosinophils% 2.2 % (0-5); Hematocrit 42.3 % (37-47); Lymphocyte # 2.24 X10^3/ul (0.83-4.51); Lymphocyte % 38.6 % (19-41); Mean Corp Hgb Conc 35.5 g/dL (32-36); Mean Corpuscular Hgb 32.6 pg (27.0-32.0); Monocyte# 0.38 X10^3/uL; Monocyte% 6.6 % (0-10); NRBC Flagged by Analyzer 0 % (0-5); Neutrophil # 2.99 X10^3/uL (2.7-7.7); Neutrophil % 51.6 % (47-70); Platelet Count 302 K/mm3 (150-450); RBC Distribution Width CV 11.7 % (11.6-14.6); RBC Distribution Width SD 39.3 fl (35.1-43.9); White Blood Count 5.8 K/mm3 (4.4-11.0)
[2022-07-19 15:41] LABS: ALB/GLOB Ratio 1.2 RATIO (0.9-2.4); AST(SGOT) 12 U/L (15-37); Alanine Aminotransfer ALT/SGPT 23 U/L (13-56); Alkaline Phosphatase 123 U/L (45-117); Anion Gap 7 (5-15); BUN 18 mg/dL (7-18); BUN/Creat Ratio 22.2 RATIO (10-20); Calcium,Total 9.2 mg/dL (8.5-10.1); Chloride 105 mmol/L (98-107); Creatinine, Serum 0.81 mg/dL (0.55-1.02); EST Glomerular Filtration Rate 86 mL/min (>60); Est Glom Filt Rate - Afr Amer 104 mL/min (>60); Globulin 3.2 g/dL (2.2-4.2); Glucose 87 mg/dL (74-106); Potassium 3.8 mmol/L (3.5-5.1); Protein, Total 7.2 g/dL (6.4-8.2); Sodium Level 137 mmol/L (136-145)
[2022-07-22 15:31] LABS: G6PD Quant Test 261 (127-427)
== END | disposition home or self-care (01) ==
PROVIDERS: PCP Family Medicine; Referring Provider Internal Medicine Rheumatology; Visit Provider Internal Medicine Rheumatology
DX: M06.4 Inflammatory polyarthropathy (principal); G43.909 Migraine, unspecified, not intractable, without status migrainosus; F41.9 Anxiety disorder, unspecified; F32.A Depression, unspecified; K58.1 Irritable bowel syndrome with constipation; M21.41 Flat foot [pes planus] (acquired), right foot
CPT/HCPCS: 36415; 80053; 82955; 85025

== ENCOUNTER → 2025-01-28 | Outpatient (CLI) | payer SELFPAY ==
--- NOTE | 2025-01-28 16:55 | RAD_ITS ---
PROCEDURE: THORACIC SPINE 2 VIEWS 01/28/2025 REASON FOR EXAM: BACK PAIN TECHNIQUE: Procedure Code: RADSPT2 Modality: DX Procedure: THORACIC SPINE 2 VIEWS COMPARISON: None. FINDINGS: No evidence of fracture or subluxation. Preserved vertebral body heights and intervertebral disc spaces. Mild levoscoliotic curvature of the lower thoracic spine. The lungs and pleura are clear. RAD/Thoracic Spine 2 Views IMPRESSION: No evidence of fracture, subluxation or substantial degenerative changes. Mild levoscoliosis of the lower thoracic spine. Reading Location: [id number]
== END | disposition home or self-care (01) ==
PROVIDERS: PCP Internal Medicine; Referring Provider Internal Medicine; Visit Provider Internal Medicine
DX: M54.6 Pain in thoracic spine (principal)
CPT/HCPCS: 72070